=== PATIENT | male | born 1960 | race Caucasian/White ===

== ENCOUNTER 2020-08-02 15:08 | Outpatient (CLI) | payer OTHER | END 2020-08-02 15:09 | disposition home or self-care (01) | LOC: CSHCT 15:08 | PROVIDERS: ATTEND Urology | DX: N20.1 Calculus of ureter (principal); N20.2 Calculus of kidney with calculus of ureter; K80.20 Calculus of gallbladder without cholecystitis without obstruction | CPT/HCPCS: 74176 ==

== ENCOUNTER 2022-07-30 14:48 | Outpatient (CLI) | payer BC | END 2022-07-30 14:49 | disposition home or self-care (01) | LOC: CSHMRI 14:48 | PROVIDERS: ATTEND Orthopaedic Surgery | DX: S46.011A Strain of muscle(s) and tendon(s) of the rotator cuff of right shoulder, initial encounter (principal) ==

== ENCOUNTER 2024-02-13 09:36 | Emergency (ER) | payer BC ==
[2024-02-13] MEDS ORDERED: EPINEPHrine 1 MG/ML VIAL ONE (10:24)
[2024-02-13] MEDS ORDERED: methylPREDNISolone Sod Succ/PF 125 MG/2 ML VIAL ONE (10:24)
== END 2024-02-13 13:20 | disposition home or self-care (01) ==
LOC: CSHERS 09:36
DX: T78.2XXA Anaphylactic shock, unspecified, initial encounter (principal); I10 Essential (primary) hypertension; E11.9 Type 2 diabetes mellitus without complications
CPT/HCPCS: 96372; 96374; J0171; J2919